=== PATIENT | female | born 1975 | race Caucasian/White ===

== ENCOUNTER 2017-06-21 15:09 | Observation (INO) | payer OTHER ==
[2017-06-21] MEDS ORDERED: ONDANSETRON 4 MG/2 ML VIAL IVP ONE (15:44)
[2017-06-21] MEDS ORDERED: KETOROLAC 30 MG/1 ML SDV IVP ONE (15:44)
[2017-06-21] MEDS ORDERED: NS 1,000 ML IV ONE (15:44)
[2017-06-21 15:56] LABS: % IMMATURE GRANULYOCYTES 0.3 % (0.0-1.1); ABSOLUTE IMMATURE GRANULOCYTES 0.04 10^3/uL (0.00-0.10); ADD DIFF? NO; ADD MORPH? NO; ADD SCAN? NO; ATYPICAL LYMPHOCYTE FLAG 0 (0-99); FRAGMENT RBC FLAG 0 (0-99); HEMATOCRIT 43.1 % (38.0-47.0); HEMOGLOBIN 14.8 g/dL (12.6-16.3); LEFT SHIFT FLG 0 (0-99); LIPEMIA HEMOLYSIS FLAG 90 (0-99); MEAN CELL HEMOGLOBIN CONCENTR. 34.3 g/dL (32.4-36.7); MEAN CELL VOLUME 90.2 fL (81.5-99.8); MEAN PLATELET VOLUME 10.5 fL (8.7-11.7); PLATELET CLUMPS FLAG 0 (0-99); PLATELET COUNT 165 10^3/uL (150-400); RED BLOOD CELL COUNT 4.78 10^6/uL (4.18-5.33); RED CELL DISTRIBUTION WIDTH 12.5 % (11.5-15.2)
[2017-06-21 16:02] LABS: ALANINE AMINOTRANSFERASE 50 IU/L (9-52); ALBUMIN 4.5 g/dL (3.5-5.0); ALKALINE PHOSPHATASE 42 IU/L (38-126); ANION GAP 12 mEq/L (8-16); ASPARTATE AMINOTRANSFERASE 38 IU/L (14-46); BILIRUBIN,TOTAL 0.7 mg/dL (0.1-1.4); BILIRUBIN-CONJUGATED 0.2 mg/dL (0.0-0.5); BILIRUBIN-UNCONJUGATED 0.5 mg/dL (0.0-1.1); CALCIUM 9.8 mg/dL (8.5-10.4); CARBON DIOXIDE 26 mEq/l (22-31); CHLORIDE 99 mEq/L (97-110); CREATININE 0.8 mg/dL (0.6-1.0); GLOMERULAR FILTRATION RATE > 60; GLUCOSE 96 mg/dL (70-100); POTASSIUM 3.5 mEq/L (3.5-5.2); SODIUM 137 mEq/L (134-144); TOTAL PROTEIN 7.7 g/dL (6.3-8.2)
--- NOTE | 2017-06-21 16:20 | EDPHY ---
H & P Stated Complaint: rlq abd pain brought from the medical center/iud removed - Personal History LMP (Females 10-55): Now Current Tetanus/Diphtheria Vaccine: Yes - Medical/Surgical History Hx Asthma: Yes Hx Chronic Respiratory Disease: No Hx Diabetes: No Hx Cardiac Disease: No Hx Renal Disease: No Hx Cirrhosis: No Hx Alcoholism: No Hx HIV/AIDS: No Hx Splenectomy or Spleen Trauma: No Other PMH: PT WITH HX HYPOTHROID. PT HAS ASTHMA HAS NOT USED HER INHALER DURING HER . HX DEPRESSION DURING PREGNANCIES BUT HAS BEEN OK - Social History Smoking Status: Never smoked Time Seen by Provider: 06/21/17 15:40 HPI/ROS: CHIEF COMPLAINT: Bilateral lower abdominal pain since 9:00 a.m. HISTORY OF PRESENT ILLNESS: 41-year-old female presents via private vehicle from [facility]. She complained of sudden onset of bilateral lower abdominal pain at 9:00 a.m. today, was seen at [facility]. The patient had a new IUD placed 3 weeks ago and this was subsequently removed today in the office as was thought to be possible etiology of her pain. IUD was removed she complains of continued pain. No radiation pain. No nausea or vomiting. bowel movement abnormality such as melena or hematochezia. No fever or chills. No trauma. No rash. REVIEW OF SYSTEMS: A ten point review of systems was performed and is negative with the exception of the items mentioned in the HPI PAST MEDICAL & SURGICAL HISTORY: Recent IUD removal SOCIAL HISTORY: PHYSICAL EXAM (Prior to examination, patient consented to physical exam, hands were washed and my usual and customary physical exam procedures followed) 1) GENERAL: Well-developed, well-nourished, alert and oriented. Appears uncomfortable laying in a left lateral position . 2) HEAD: Normocephalic, atraumatic 3) HEENT: Pupils equal, round, reactive to light bilaterally. Sclera anicteric. Nasopharynx, oropharynx, clear, no lesions. Moist mucous membrane 4) NECK: Full range of motion, no meningeal signs. 5) LUNGS: Clear auscultation bilaterally, no wheezes, no rhonchi, no retractions. 6) HEART: Regular rate and rhythm, no murmur, no heave, no gallop. 7) ABDOMEN: Heating pad over abdomen, removed, tender to palpation bilateral lower quadrants and suprapubic region. Negative peritoneal sign. Negative Foster's., 8) MUSCULOSKELETAL: Moving all extremities, no focal areas of tenderness, no obvious trauma. No peripheral edema or discoloration. 9) BACK: No CVA tenderness, no midline vertebral tenderness, no fluctuance, no step-off, no obvious trauma, no visual or palpable abnormality. 10) SKIN: No rash, no petechiae. 11) Psychiatric: Patient is oriented X 3, there is no agitation. DIFFERENTIAL DIAGNOSIS: My differential diagnosis includes, but is not limited to, acute appendicitis, acute cholecystitis, bowel obstruction, acute pancreatitis, ovarian torsion, ectopic , gastritis and urinary tract infection. The patient understands that this diagnosis is provisional and can never be 100% accurate. This is a partial list of diagnoses considered. These considerations are based on history, physical exam, past history and reassessment. (Zoltan Caal) Constitutional: Initial Vital Signs Temperature (C) 36.6 C 06/21/17 15:31 Heart Rate 77 06/21/17 15:31 Respiratory Rate 20 06/21/17 15:31 Blood Pressure 101/58 L 06/21/17 15:31 O2 Sat (%) 98 06/21/17 15:31 O2 Delivery Mode Room Air Allergies/Adverse Reactions: No Known Allergies Allergy (Verified 06/21/17 15:30) Home Medications: Medication Instructions Recorded Acetaminophen [Tylenol 325mg (*)] 650 mg PO Q6 #0 tab 06/21/17 Ibuprofen [Ibuprofen Ib] 600 mg PO Q8 PRN #30 tablet 06/21/17 Levothyroxine [Synthroid 88 mcg 88 mcg PO DAILY06 06/21/17 (*)] Medical Decision Making - Diagnostics Imaging Results: Imaging Impressions Abdomen Ultrasound 06/21/17 16:19 Impression: 1. Inability to identify the appendix. 2. No indirect sonographic evidence for appendicitis. 3. Enlarged single pericecal lymph node. Mesenteric adenitis? Results called to Dr. Whittaker at 5:37 PM. Pelvic/Renal Ultrasound 06/21/17 16:19 Impression: 4.0 cm right ovarian follicle cyst. Otherwise negative pelvic sonogram. Results called to Dr. Whittaker at 5:[address] 06/21/17 17:21 Impression: 1. Enlarged, fluid-filled appendix in the midline pelvis measuring 9 mm and containing 2 fecaliths and foci of gas. Paucity of intra-abdominal fat limits detection of periappendiceal inflammatory change. Findings may be normal or could represent early appendicitis. 2. Prominent gallbladder, central and extrahepatic bile ducts may be related to fasting state. 3. Nonobstructing left nephrolithiasis, as above. Dr. Murphy discussed these findings by telephone with KRYSTLE WHITTAKER at 2016 18:14. ED Course/Re-evaluation: 5:00 p.m.: Care turned over Dr. Krystle Whittaker at this time, ultrasound pending. (Zoltan Caal) 5:00 p.m.-this patient was signed over to me at shift change. Abdomen is soft, right lower quadrant and suprapubic tenderness. Preliminary ultrasound is negative. The appendix is not visualized. CT scan reveals early appendicitis. The patient was informed. Invanz [address] Radha Mae was consulted and took the patient to the operating room. The patient remained stable throughout her emergency department stay. ( Krystle Whittaker) Differential Diagnosis: Differential diagnosis includes though it is not limited to appendicitis, cholecystitis, diverticulitis, pyelonephritis, bowel perforation, small bowel obstruction. (Krystle Whittaker) - Data Points Laboratory Results: Laboratory Results 06/21/17 15:40 06/21/17 15:40 06/21/17 06/21/17 06/21/17 17:35 15:40 15:40 WBC RBC Hgb Hct MCV MCH MCHC RDW Plt Count MPV Neut % (Auto) Lymph % (Auto) [place] % (Auto) Eos % (Auto) Baso % (Auto) Nucleat RBC Rel Count Absolute Neuts (auto) Absolute Lymphs (auto) Absolute Monos (auto) Absolute Eos (auto) Absolute Basos (auto) Absolute Nucleated RBC Immature Gran % Immature Gran # Sodium 137 mEq/L mEq/L (134-144) Potassium 3.5 mEq/L mEq/L (3.5-5.2) Chloride 99 mEq/L mEq/L (97-110) Carbon Dioxide 26 mEq/l mEq/l (22-31) Anion Gap 12 mEq/L mEq/L (8-16) BUN 15 mg/dL mg/dL (7-23) Creatinine 0.8 mg/dL mg/dL (0.6-1.0) Estimated GFR > 60 Glucose 96 mg/dL mg/dL (70-100) Calcium 9.8 mg/dL mg/dL (8.5-10.4) Total Bilirubin 0.7 mg/dL mg/dL (0.1-1.4) Conjugated Bilirubin 0.2 mg/dL mg/dL (0.0-0.5) Unconjugated Bilirubin 0.5 mg/dL mg/dL (0.0-1.1) AST 38 IU/L IU/L (14-46) ALT 50 IU/L IU/L (9-52) Alkaline Phosphatase 42 IU/L IU/L (38-126) Total Protein 7.7 g/dL g/dL (6.3-8.2) Albumin 4.5 g/dL g/dL (3.5-5.0) Lipase 68.0 IU/L IU/L (23-300) Beta HCG, Qual NEGATIVE Urine Color YELLOW Urine Appearance HAZY Urine pH 5.0 (5.0-7.5) Ur Specific [place] 1.017 (1.002-1.030) Urine Protein NEGATIVE (NEGATIVE) Urine Ketones 1+ H (NEGATIVE) Urine Blood 3+ H (NEGATIVE) Urine Nitrate NEGATIVE (NEGATIVE) Urine Bilirubin NEGATIVE (NEGATIVE) Urine Urobilinogen NEGATIVE EU EU (0.2-1.0) Ur Leukocyte Esterase 1+ H (NEGATIVE) Urine RBC 1-3 /hpf /hpf (0-3) Urine WBC 1-3 /hpf /hpf (0-3) Ur Epithelial Cells TRACE /lpf /lpf (NONE-1+) Urine Mucus 1+ /lpf /lpf (NONE-1+) Urine Glucose NEGATIVE (NEGATIVE) 06/21/17 15:40 WBC 12.13 10^3/uL H 10^3/uL (3.80-9.50) RBC 4.78 10^6/uL 10^6/uL (4.18-5.33) Hgb 14.8 g/dL g/dL (12.6-16.3) Hct 43.1 % % (38.0-47.0) MCV 90.2 fL fL (81.5-99.8) MCH 31.0 pg pg (27.9-34.1) MCHC 34.3 g/dL g/dL (32.4-36.7) RDW 12.5 % % (11.5-15.2) Plt Count 165 10^3/uL 10^3/uL (150-400) MPV 10.5 fL fL (8.7-11.7) Neut % (Auto) 78.5 % H % (39.3-74.2) Lymph % (Auto) 15.1 % % (15.0-45.0) [place] % (Auto) 5.4 % % (4.5-13.0) Eos % (Auto) 0.3 % L % (0.6-7.6) Baso % (Auto) 0.4 % % (0.3-1.7) Nucleat RBC Rel Count 0.0 % % (0.0-0.2) Absolute Neuts (auto) 9.52 10^3/uL H 10^3/uL (1.70-6.50) Absolute Lymphs (auto) 1.83 10^3/uL 10^3/uL (1.00-3.00) Absolute Monos (auto) 0.65 10^3/uL 10^3/uL (0.30-0.80) Absolute Eos (auto) 0.04 10^3/uL 10^3/uL (0.03-0.40) Absolute Basos (auto) 0.05 10^3/uL 10^3/uL (0.02-0.10) Absolute Nucleated RBC 0.00 10^3/uL 10^3/uL (0-0.01) Immature Gran % 0.3 % % (0.0-1.1) Immature Gran # 0.04 10^3/uL 10^3/uL (0.00-0.10) Sodium Potassium Chloride Carbon Dioxide Anion Gap BUN Creatinine Estimated GFR Glucose Calcium Total Bilirubin Conjugated Bilirubin Unconjugated Bilirubin AST ALT Alkaline Phosphatase Total Protein Albumin Lipase Beta HCG, Qual Urine Color Urine Appearance Urine pH Ur Specific [place] Urine Protein Urine Ketones Urine Blood Urine Nitrate Urine Bilirubin Urine Urobilinogen Ur Leukocyte Esterase Urine RBC Urine WBC Ur Epithelial Cells Urine Mucus Urine Glucose Medications Given: Discontinued Medications Hydrocodone Bitart/Acetaminophen ([place] 5/325) 1 - 2 tab PO Q4HRS PRN PRN Reason: PACU, Pain Moderate Stop: 06/21/17 20:58 Last Admin: 06/21/17 20:42 Dose: 1 tab Bupivacaine HCl (Sensorcaine 0.5% Vial) Confirm Administered Dose 30 ml .ROUTE .STK-MED ONE Stop: 06/21/17 18:41 Last Admin: 06/21/17 19:36 Dose: 30 ml Sodium Chloride (Ns) 1,000 mls @ 0 mls/hr IV ONCE ONE PRN Reason: Wide Open Stop: 06/21/17 15:45 Last Admin: 06/21/17 15:50 Dose: 1,000 mls Ertapenem 1 gm/ Sodium (Chloride) 100 mls @ 200 mls/hr IV EDNOW ONE PRN Reason: Protocol Stop: 06/21/17 18:46 Last Admin: 06/21/17 19:15 Dose: 100 mls Lactated Ringer's (Lr) 1,000 mls @ 0 mls/hr IV ONCE ONE PRN Reason: KVO Stop: 06/21/17 19:07 Last Admin: 06/21/17 19:10 Dose: 1,000 mls Ketorolac Tromethamine (Toradol) 30 mg IVP EDNOW ONE Stop: 06/21/17 15:45 Last Admin: 06/21/17 15:56 Dose: 30 mg Morphine Sulfate (Morphine) 4 mg IVP EDNOW ONE Stop: 06/21/17 15:45 Last Admin: 06/21/17 15:49 Dose: 4 mg Ondansetron HCl (Zofran) 4 mg IVP EDNOW ONE Stop: 06/21/17 15:45 Last Admin: 06/21/17 15:52 Dose: 4 mg Ondansetron HCl (Zofran) 2 - 4 mg IVP Q10M PRN PRN Reason: PACU, Nausea/Vomiting Stop: 06/21/17 20:58 Last Admin: 06/21/17 21:16 Dose: 4 mg Departure - Departure Disposition: To OP Cath/Surgery Clinical Impression: Acute appendicitis Qualifiers: Acute appendicitis type: with localized peritonitis Qualified Code(s): K35.3 - Acute appendicitis with localized peritonitis Condition: Good
[2017-06-21] MEDS ORDERED: IOPAMIDOL (ISOVUE-300) 100 ML BTL ONE (17:31)
[2017-06-21 18:03] LABS: COLOR YELLOW; LEUKOCYTE ESTERASE,URINE 1+ (NEGATIVE); NITRITE,URINE NEGATIVE (NEGATIVE)
[2017-06-21 18:15] LABS: MUCUS 1+ /lpf (NONE-1+)
[2017-06-21] MEDS ORDERED: ERTAPENEM 1 GM in NS 100 ML IV ONE (18:17)
[2017-06-21] MEDS ORDERED: BUPIVACAINE 0.5% 30 ML SDV ONE (18:40)
[2017-06-21] MEDS ORDERED: LR 1,000 ML IV ONE (19:06)
[2017-06-21] MEDS ORDERED: ROCURONIUM 50 MG/5 ML VIAL ONE (19:10)
[2017-06-21] MEDS ORDERED: fentaNYL 100 MCG/2 ML INJ ONE ×2 (19:10)
[2017-06-21] MEDS ORDERED: PROPOFOL 200 MG/20 ML VIAL ONE (19:10)
[2017-06-21] MEDS ORDERED: DEXAMETHASONE 4 MG/ML VIAL ONE ×2 (19:10)
[2017-06-21] MEDS ORDERED: MIDAZOLAM 2 MG/2 ML VIAL ONE (19:10)
[2017-06-21] MEDS ORDERED: METOCLOPRAMIDE 10 MG/2 ML VIAL ONE (19:11)
[2017-06-21] MEDS ORDERED: NEOSTIGMINE METHYLSULFATE 5 MG/5 ML SYR ONE (19:11)
[2017-06-21] MEDS ORDERED: LIDOCAINE 2% 100 MG/5 ML SYR ONE (19:11)
[2017-06-21] MEDS ORDERED: GLYCOPYRROLATE 0.2 MG/1 ML VIAL ONE ×2 (19:11)
--- NOTE | 2017-06-21 19:20 | GHP ---
[f rep st] HISTORY AND PHYSICAL DATE OF ADMISSION: 06/21/2017 REQUESTING PHYSICIAN: Dr. Ailyn Whittaker. CHIEF COMPLAINT: Appendicitis. HISTORY OF PRESENT ILLNESS: Patient is a 41-year-old woman who developed abdominal pain. She was i nitially seen by her STUD MASTER/MISTRESS and concern was that the IUD was causing problems. This was removed. H er abdominal pain continued. She presented to the ER. Ultrasound was obtained followed by CT which showed a 9 mm appendix. She does not have nausea. She does not have fever. She does have an elev ated white blood count. PAST MEDICAL HISTORY: None. PAST SURGICAL HISTORY: [place] tooth extraction. SOCIAL HISTORY: She works at [employer]. She is a nonsmoker. She is with 3 ch ildren. FAMILY HISTORY: Noncontributory. REVIEW OF SYSTEMS: 10-point review of systems negative except per HPI. PHYSICAL EXAMINATION: GENERAL: Pleasant, well-nourished, well-groomed woman lying on bed, at bedside. HEENT: Normocephalic, no gross hearing deficits. Mucous membranes moist. Pupils equa l and round. No scleral icterus. LUNGS: Clear to auscultation bilaterally. No increased work of breathing. CARDIAC: Regular rate. ABDOMEN: Bowel sounds present. Soft, nondistended. She is diffu sely tender. No peritoneal signs. MUSCULOSKELETAL: Normal nails. SKIN: Warm and dry. PSYCH: Mo od and affect normal. NEURO: Grossly intact. LABORATORY DATA: Results reviewed per HPI. IMPRESSION AND PLANS: Patient is a 41-year-old woman with acute appendicitis. I will take her to [facility] operating room for a laparoscopic appendectomy. The risks and benefits, including, but not limit ed to, stroke, heart attack, , blood clots, infection, bleeding, damage to surrounding structur es such as bowel and bladder were discussed. She had her questions answered to her satisfaction and signed the consent. /[id number]/MODL
--- NOTE | 2017-06-21 19:23 | POSTOPPROG ---
Post Op Note Date of Operation: 06/23/17 Surgeon: Radha Mae Anesthesiologist: javon Anesthesia: GET(General Endotracheal) Pre-op Diagnosis: acute appendicitis Post-op Diagnosis: same Indication: 41 year old with appendicitis Procedure: lap appy Findings: inflamed appendix Inf/Abcess present in the surg proc area at time of surgery?: No Specimen(s): appendix
--- NOTE | 2017-06-21 19:36 | PDANEPAE ---
ANE Past Medical History - Pulmonary History Hx Oxygen in Use at Home: No Hx Sleep Apnea: No - Endocrine History Hx Diabetes: No Hypothyroid: Yes - Chronic Pain History Chronic Pain: No ANE Patient History - Allergies Allergies/Adverse Reactions: No Known Allergies Allergy (Verified 06/21/17 15:30) - Home Medications Home Medications: Levothyroxine [Synthroid 88 mcg (*)] 88 mcg PO DAILY06 06/21/17 [Last Taken 08/28] - NPO status NPO Since - Liquids (Date): 06/21/17 NPO Since - Liquids (Time): 08:30 NPO Since - Solids (Date): 06/21/17 NPO Since - Solids (Time): 08:30 - Smoking Hx Smoking Status: Never smoked ANE Labs/Vital Signs - Labs Result Diagrams: 06/21/17 15:40 06/21/17 15:40 - Vital Signs Blood Pressure: 107/70 Heart Rate: 62 Respiratory Rate: 12 O2 Sat (%): 97 Height: 177.8 cm Weight: 61.235 kg ANE Physical Exam - Airway Mallampati Score: Class 2 Mouth exam: normal dental/mouth exam - Pulmonary Pulmonary: no respiratory distress - Cardiovascular Cardiovascular: regular rate and rhythym - ASA Status ASA Status: II, E
[2017-06-21] MEDS ORDERED: MEPERIDINE 25 MG/ML SYR IVP PRN (19:57)
[2017-06-21] MEDS ORDERED: NALOXONE HCL 0.4 MG/ML INJ IVP PRN (19:57)
[2017-06-21] MEDS ORDERED: fentaNYL 100 MCG/2 ML INJ IVP PRN (19:57)
[2017-06-21] MEDS ORDERED: ONDANSETRON 4 MG/2 ML VIAL IVP PRN (19:57)
[2017-06-21] MEDS ORDERED: ACETAMINOPHEN 500 MG TAB PO PRN (19:57)
[2017-06-21] MEDS ORDERED: HYDROCODONE/APAP 5/325 TAB PO PRN (19:57)
[2017-06-21] MEDS ORDERED: LR 500 ML IV PRN (19:57)
--- NOTE | 2017-06-21 19:59 | POSTANESTH ---
Post Anesthetic Evaluation Cardiovascular Status: Normal, Stable Respiratory Status: Normal, Stable Level of Consciousness/Mental Status: Can Participate in Eval Pain Control: Adequate, Prn Tx Ordered Nausea/Vomiting Control: Adequate, Prn Tx Ordered
--- NOTE | 2017-06-21 20:10 | GOP ---
[f rep st] OPERATIVE REPORT DATE OF OPERATION: 06/21/2017 SURGEON: Radha Mae MD ANESTHESIA: Mauro Duval MD, general. PREOPERATIVE DIAGNOSIS: Acute appendicitis. POSTOPERATIVE DIAGNOSIS: Acute appendicitis. PROCEDURE PERFORMED: Laparoscopic appendectomy. FINDINGS: Inflamed appendix. SPECIMENS: Appendix. ESTIMATED BLOOD LOSS: 5 cc. INDICATIONS: The patient is a 41-year-old woman who had abdominal pain and it was initially thought that her IUD was causing her problems. This was removed. She then had ultrasound and CT scan. e CT scan showed an inflamed appendix with fecalith. DESCRIPTION OF PROCEDURE: The patient was brought into the operating room, placed supine on the tab le, and general anesthesia was administered. Her abdomen was prepped and draped in the usual steril e fashion. I infiltrated all sites with 0.5% Marcaine prior to making incisions. I made an incisio n beneath her umbilicus. I elevated it. I inserted the Veress needle. It passed the hanging drop test. Her abdomen insufflated easily to a pressure of 15 mmHg. I placed a 5 mm trocar with a camer a at this site. I explored her abdomen. There was an inflamed appendix. I placed a 5 mm suprapubic trocar and a 10 mm trocar in the left lower abdomen. I grasped the tip o f her appendix. I divided the mesoappendix with the Harmonic Scalpel. I divided the base with an E ndo-IBIS 45 white load. Hemostasis was achieved at the staple line. The appendix was placed in an E ndoCatch bag and retrieved via the 10 mm trocar. Ports were removed under direct vision. The abdom en allowed to desufflate. The 10 mm trocar site was closed with 0 Vicryl. Skin closed with 4-0 Mon ocryl. Dermabond applied. She was awakened in the operating room, extubated, transferred to PACU in stable condition. /[id number]/MODL
[2017-06-21] MEDS ORDERED: HYDROCODONE/APAP 5/325 TAB ONE (20:40)
[2017-06-21 20:48] VITALS: PULSE 52; TEMP 99.1
[2017-06-21 21:12] VITALS: BP 98/66; RESP 20; O2SAT 93
[2017-06-21] MEDS ORDERED: ONDANSETRON 4 MG/2 ML VIAL ONE (21:15)
== END 2017-06-21 21:25 | disposition home or self-care (01) ==
PROVIDERS: ADMIT Surgery; ATTEND Surgery
PROC: 0DTJ4ZZ Resection of Appendix, Percutaneous Endoscopic Approach (ICD-10-PCS; principal; 2017-06-21 19:00)
DX: K35.80 Unspecified acute appendicitis (principal); R59.0 Localized enlarged lymph nodes; N83.201 Unspecified ovarian cyst, right side; E03.9 Hypothyroidism, unspecified; J45.909 Unspecified asthma, uncomplicated; N20.0 Calculus of kidney
CPT/HCPCS: 96374; J1100; J1335; J1885; J2001; J2250; J2405; J2704; J2710; J2765; J3010; Q9967